=== PATIENT | male | born 1960 | race Caucasian/White ===

== ENCOUNTER 2017-02-01 09:41 | Emergency (ER) | payer BC ==
[~2017-02-01] VITALS: Ht 182.9 cm; Wt 172.4 kg
--- NOTE | ~2017-02-01 | EKG ---
[place] [address] [facility] [place] [address] ELECTROCARDIOGRAM REPORT Name: KVNG MALAVE Room [facility] [id number] Admission: 02/01/17 Attend Phys: Discharge: 02/01/17 Date of : 64 Report #: [id number] THIS REPORT FOR: //name// [facility] ED Test Date: 2017-02-01 Test Time: 10:08:59 Pat Name: KVNG MALAVE Department: Room: Gender: M Compliance Paralegal: : 1960 Requested By: Emma Ragland Order Number: [id number] MD: Papi Brambila Measurements Intervals [place] Rate: 101 P: [place]: QRS: 5 QRSD: 104 T: 7 QT: 342 QTc: 444 Interpretive Statements Atrial fibrillation Borderline low voltage, extremity leads No previous ECG available for comparison Electronically Signed On 02-02-2017 18:14:30 CDT by Papi Brambila [email or web address] <ELECTRONICALLY SIGNED> By: Papi Brambila MD, [facility] 02/02/17 1814 1008 1008 Papi Brambila MD, FACC /EPI
[~2017-02-01 09:41] MED LIST: COUMADIN 5 MG TA5 M1 PO; COUMADIN7.5 MG PO; ENALAPRIL MALEAT5 M1 PO; IBUPROFEN 600600 M1 PO; MEDROL DOSPAK21 TAB PO; NORCO 5-325 TA1 EACH PO; TOPROL XL50 MG PO; ULTRAM 50MG TAB50 MG PO; ZOCOR20 MG
[2017-02-01 10:06] LABS: HEMATOCRIT 45.8 % (42.0-52.0); HEMOGLOBIN 15.7 gm/dL (14.0-18.0); MCH 30.2 pg (26.0-34.0); MCHC 34.3 g/dL (28.0-37.0); RDW 14.7 % (10.5-14.5); WBC 9.6 thou/uL (4.0-11.0)
[2017-02-01 10:08] LABS: MANUAL DIFF YES
[2017-02-01 10:15] LABS: CREATININE 0.9 mg/dL (0.7-1.3); POTASSIUM 4.3 mmol/L (3.5-5.1)
[2017-02-01 10:25] LABS: ABG SAMPLE TYPE ARTERIAL; BE(vivo) 1.4 mmol/L (-2 to +3); LACTATE 1.08 mmol/L (0.5-2.0); O2(CT) 20.4 mL/dL (15.0-23.0); O2Hb 90.1 % (92.0-98.0); PO2 61.6 mmHg (80.0-100.0); STICK SITE R.RADIAL; sO2 92.1 % (92.0-98.0); tCO2 27.3 mmol/L (24.0-30.0)
[2017-02-01 10:31] LABS: APTT 62.7 Seconds (24.5-32.8); INR 5.8; PROTIME 57.5 Seconds (9.3-11.4)
[2017-02-01] MEDS ORDERED: LEVAQUIN 500 M500 MG PO (11:16)
[2017-02-01] MEDS ORDERED: NORCO 5-325 TA1 EACH PO (11:16)
[2017-02-01 11:17] LABS: ABSOLUTE NEUTROPHILS 6.3 thou/uL (1.4-8.2); ANISOCYTOSIS SLIGHT; ATYPICAL LYMPHS 1 %; LARGE PLATELETS RARE; PLATELET COUNT 162 thou/uL (150-400); TOTAL CELL COUNT 100
[2017-02-01] MEDS ORDERED: PREDNISONE 20 M20 MG PO (11:23)
[2017-02-01] MEDS ORDERED: PROAIR HFA8.5 GM INH (11:23)
[2017-02-01 11:35] VITALS: BP 119/74
== END 2017-02-01 11:16 | disposition home or self-care (01) ==
LOC: ER 09:41
PROVIDERS: Emergency Medicine
DX: J18.9 Pneumonia, unspecified organism (principal); R79.1 Abnormal coagulation profile; Z72.0 Tobacco use; I48.91 Unspecified atrial fibrillation; F10.99 Alcohol use, unspecified with unspecified alcohol-induced disorder; Z96.641 Presence of right artificial hip joint; Z88.0 Allergy status to penicillin

== ENCOUNTER → 2017-04-21 | Outpatient (CLI) | payer BC ==
[~2017-04-21] MED LIST changes: +ELIQUIS5 MG PO; +LEVAQUIN 500 M500 MG PO; +PREDNISONE 20 M20 MG PO; +PROAIR HFA8.5 GM INH
--- NOTE | ~2017-04-21 | EKG ---
[address] [address] ELECTROCARDIOGRAM REPORT Name: KVNG MALAVE Room #: REG CLI [facility]#: [id number] Admission: 04/21/17 Attend Phys: Abdiel Bender MD Discharge: Date of : 64 Report #: [id number] THIS REPORT FOR: //name// [facility] Test Date: 2017-04-25 Test Time: 06:10:17 Pat Name: KVNG MALAVE Department: Room: 213 P Gender: M Ems Educator: APARNA : 1960 Requested By: Lenard Oneil Order Number: [id number] MD: Papi Brambila Measurements Intervals [place] Rate: 81 P: [place]: QRS: -13 QRSD: 134 T: -18 QT: 376 QTc: 437 Interpretive Statements Atrial fibrillation Nonspecific T wave abnormality Compared to ECG 04/24/2017 07:36:27 No significant change was found Electronically Signed On 04-25-2017 8:51:47 CDT by Papi Brambila [email or web address] <ELECTRONICALLY SIGNED> By: Papi Brambila MD, [facility] 04/25/17 0851 9 9 Papi Brambila MD, [facility] /EPI
== END ==
LOC: CAT 09:25
DX: K62.89 Other specified diseases of anus and rectum (principal)

== ENCOUNTER 2017-04-22 13:42 | Inpatient (IN) | payer BC ==
[~2017-04-22] VITALS: Ht 185.4 cm; Wt 161.0 kg
--- NOTE | ~2017-04-22 | 2DMMODE ---
[facility] [address] [facility] [place] [address] 2 D/M-MODE ECHOCARDIOGRAM Name: KVNG MALAVE Room #: 213-P ADM IN M.R.#: [id number] Admission: 04/22/17 Attend Phys: Fabio Doe Discharge: Date of : 64 Date of Service: 04/25/17 1540 Report #: [id number] THIS REPORT FOR: //name// APPROVED REPORT Study performed: 04/25/2017 14:21:23 EXAM: Comprehensive 2D, Doppler, and color-flow Echocardiogram Patient Location: Bedside Room #: 213 Status: routine BSA: 2.74 BP: 118/66 mmHg Other Information Study Quality: Technically Difficult Technically limited study due to body habitus, inability to position patient. Indications Atrial Fibrillation 2D Dimensions RVDd: 57.80 mm LVEF(%): 52.39 (>50%) IVSd: 15.01 (7-11mm) LVOT Diam: 22.28 (18-24mm) LVDd: 57.65 mm PWd: 15.26 (7-11mm) Ascending Ao: 36.99 (22-36mm) LVDs: 41.92 (25-40mm) Aortic Root: 34.33 mm IVC: 17.00 mm Han's LVEF: 52.39 % Volumes Left Atrial Volume (Systole) Single Plane 4CH: 55.32 mL Single Plane 2CH: 54.42 mL LA ESV Index: 21.00 mL/m2 Aortic Valve AoV Peak Ravi.: 1.45 m/s AO Peak Gr.: 8.42 mmHg LVOT Max P.33 mmHg LVOT Max V: 1.04 m/s PAULA Vmax: 2.79 cm2 Mitral Valve MV Decel. Time: 190.93 ms [facility] [place] [address] 2 D/M-MODE ECHOCARDIOGRAM Name: KVNG MALAVE Room #: 213-P [facility] IN M.R.#: [id number] Admission: 04/22/17 Attend Phys: Fabio Doe Discharge: Date of : 64 Date of Service: 04/25/17 1540 Report #: [id number] E Max Ravi.: 0.95 m/s IVRT: 96.89 ms Pulmonary Valve PV Peak Ravi.: 1.05 m/s PV Peak Gr.: 4.37 mmHg Tricuspid Valve RAP Estimate: 5.00 mmHg Left Ventricle Left ventricle is borderline dilated. Moderate concentric left ventricular hypertrophy. Left ventricular systolic function is mildly decreased. LVEF is 45%. This study is not technically sufficient to allow evaluation of the LV diastolic function due to atrial fibrillation. Right Ventricle Right ventricle is severely dilated. The right ventricular systolic function is normal. Atria The left atrium size is normal. Right atrium is severely dilated. Aortic Valve The aortic valve is normal in structure. No aortic regurgitation is present. There is no aortic valvular stenosis. Mitral Valve The mitral valve is normal in structure. Trace mitral regurgitation. No evidence of mitral valve stenosis. Tricuspid Valve The tricuspid valve is normal in structure. There is no tricuspid valve regurgitation noted. Pulmonic Valve Pulmonic valve is not well visualized. Great Vessels The aortic root is normal in size. IVC is normal in size and collapses >50% with inspiration. Pericardium There is no pericardial effusion. [facility] [place] [address] 2 D/M-MODE ECHOCARDIOGRAM Name: KVNG MAALVE Room #: 213-P ADM IN M.R.#: [id number] Admission: 04/22/17 Attend Phys: Fabio Doe Discharge: Date of : 64 Date of Service: 04/25/171539 Report #: [id number] <Conclusion> Left ventricle is borderline dilated. Left ventricular systolic function is mildly decreased. LVEF is 45%. Right ventricle is severely dilated. The aortic valve is normal in structure. The mitral valve is normal in structure. Trace mitral regurgitation. The tricuspid valve is normal in structure. Pulmonic valve is not well visualized. There is no pericardial effusion. <ELECTRONICALLY SIGNED> By: Gray Brown MD 04/25/17 1540 1540 1540 Gray Brown MD /INF
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
--- NOTE | ~2017-04-22 | S ---
[facility] [address] [place] [address] SURGICAL PATH RPT PROCEDURE Name: KVNG MALAVE Room #: 213-P ADM IN M.R.#: [id number] Admission: 04/22/17 Date of : 64 Discharge: Report #: [id number] Path Case #: [id number] PATHOLOGY REPORT COLLECTION DATE: 04/24/2017 RECEIVED DATE: 04/25/2017 SUBMITTING PHYS: Dr. Abdiel Bender OTHER PHYS: Dr. Fabio Cm SPECIMEN(S) RECEIVED: A.Peritoneal biopsy B.Liver biopsy * * * * * * * * * * * * FINAL DIAGNOSIS: A. Fibroadipose tissue, peritoneum, biopsy: - INVOLVEMENT BY METASTATIC HIGH GRADE CARCINOMA WITH NEUROENDOCRINE FEATURES (PLEASE SEE COMMENT). B. Liver, needle core biopsy: - MODERATELY TO POORLY DIFFERENTIATED CARCINOMA (PLEASE SEE COMMENT). - Adjacent uninvolved liver parenchyma showing reactive nonspecific changes. (IUV:pit; 04/26/2017) COMMENT: Immunohistochemical stains are performed. CD45 on block A1 - Nonreactive within the neoplastic cells Cytokeratin on block A1 Rare reactive neoplastic cells Synaptophysin on block A1- Strong reactivity Chromogranin on block A1- Nonreactive CK7 on block B1 Reactive in 20% of the tumor cells CK20 on block B1 - Nonreactive CDX2 on block B1 Strongly reactive P40 on block B1 - Nonreactive P63 on block B1 - Nonreactive HSA on block B1 - Reactive within the cells expressing CK7 CK19 on block B1 - Reactive within the cells expressing CK7 Cytokeratin on block B1 - Reactive within the neoplastic cells TTF1- Nonreactive Synaptophysin on block B1- Scant reactive cells present Chromogranin on block B1- Nonreactive Based on the immunohistochemical stains the tumor in the liver likely represents a metastatic carcinoma of gastrointestinal origin including a hepato-biliary origin. The peritoneal biopsy tissue shows neuroendocrine features. The peritoneal biopsy tissue shows much crush artifact with focal viable tumor. These tumors may represent [facility] [address] [place] [address] SURGICAL PATH RPT PROCEDURE Name: KVNG MALAVE Room #: 213-P ADM IN M.R.#: [id number] Admission: 04/22/17 Date of : 64 Discharge: Report #: [id number] Path Case #: [id number] the same tumor with different reactivities towards the antigens (immunohistochemical stains) used. History of rectal lesion as well as lung nodules is provided. Please correlate clinically and follow up as indicated. Co-review: Dr. Alla Woods. Findings are discussed with Dr. Abdiel Bender at approximately 2:30 PM on 04/26/2017. (IUV:pit; 04/26/2017) PATHOLOGIST: Tori Shaw M.D. REPORT ELECTRONICALLY SIGNED BY: Tori Shaw M.D. DATE/TIME: 04/27/2017 15:30 * * * * * * * * * * * * GROSS PATHOLOGY: A. Received in formalin labeled "Kvng Malave peritoneal BX," is a single needle core of martinez soft tissue measuring 2.1 cm in length and 0.2 cm in diameter. The specimen is submitted entirely in cassette A1. B. Received in formalin labeled "Kvng Acostajoaquinaamanda, liver BX," are 3 distinct needle cores of martinez soft tissue ranging from 1.3 to 1.9 cm in length, which are submitted entirely in cassette B1. (TSD; 04/25/2017) CLINICAL HISTORY: Abdominal mass INITIAL CPT CODE(S): A; 46123, 34372, 97350, 35898, 74722 B; 96794, 03873, 33930, 70915, 29767, 40142, 29490, 84174, 84650, 96575, 61696, 49297 Professional services performed by [facility] at [place] [address], [place] [address] Technical services performed by [facility] at [address] [place] [address], [address], [place] [address]. [facility] [address] [place] [address] PHONE: [phone] DIRECTOR: Marek Chung M.D. * * * END OF REPORT * * *
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
--- NOTE | ~2017-04-22 | EKG ---
[address] [address] ELECTROCARDIOGRAM REPORT Name: KVNG MALAVE Room #: 213-P ADM IN M.R.#: [id number] Admission: 04/22/17 Attend Phys: Meena Ibrahim Discharge: Date of : 64 Report #: [id number] THIS REPORT FOR: //name// [facility] Test Date: 2017-04-27 Test Time: 06:26:00 Pat Name: KVNG MALAVE Department: Room: 213 P Gender: M Damper Maker: : 1960 Requested By: Abdiel Bender Order Number: [id number] MD: Papi Brambila Measurements Intervals [place] Rate: 86 P: [place]: QRS: 20 QRSD: 101 T: 28 QT: 373 QTc: 446 Interpretive Statements Atrial fibrillation Low voltage, extremity leads Compared to ECG 04/25/2017 06:10:17 No significant change was found Electronically Signed On 04-27-2017 7:48:42 CDT by Papi Brambila [email or web address] <ELECTRONICALLY SIGNED> By: Papi Brambila MD, [facility] 04/27/17 0748 5 5 Papi Brambila MD, [facility] /EPI
--- NOTE | ~2017-04-22 | EKG ---
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
--- NOTE | ~2017-04-22 | P ---
[facility] [place] [address] [place] [address] PROCEDURE REPORT Name: TOBINKVNG YOUNGN Room #: 213-P ADM IN M.R.#: [id number] Admission: 04/22/17 Attend Phys: Meena Ibrahim Discharge: Date of : 64 Report #: [id number] THIS REPORT FOR: //name// CC: MICHELLE Bender MD DATE OF SERVICE: 04/29/2017 PROCEDURE PERFORMED: Flexible sigmoidoscopy with biopsies. HISTORY OF PRESENT ILLNESS: The patient is a 57-year-old male who I proceeded with a colonoscopy on several weeks ago for mucus in his stools. He was noted to have a large malignant appearing mass in his distal rectum. Biopsies at that time showed tubulous adenoma with high grade dysplasia, suspect focally suspicious for invasion. He then underwent a diverting colostomy by Dr. Abdiel Bender after a CT scan of his abdomen and pelvis showed widely metastatic disease. Biopsies during surgery by Dr. Bender of the peritoneal area as well as liver biopsy were obtained, which showed involvement by metastatic high grade carcinoma with narrow endocrine features. The liver biopsies showed moderately to poorly differentiated carcinoma. Plan is for repeat biopsies of rectal mass today. DESCRIPTION OF PROCEDURE: The risks and benefits of the procedure were explained to the patient, those risks including but not limited to bleeding, perforation, the risk of sedation. He understood these risks and gave informed consent. Sedation was given using propofol per anesthesia. Next, a digital rectal exam, once again a large mass was palpated. Next, using a standard Fujinon colonoscope, the scope was placed in the patient's anus and advanced under direct vision into the rectum. Retroflexion was performed, again a large mass was again noted. Multiple biopsies were obtained. At this point, the scope was then withdrawn and my part of the procedure was finished. Dr. Bender went ahead and did further biopsies through an anoscope. The patient tolerated the procedure well. IMPRESSION: Large distal rectal mass, status post biopsies. RECOMMENDATIONS: We will await biopsy results. Thank you for allowing me to participate in his care. By: [id number] Jose Vizcarra MD /nt
--- NOTE | ~2017-04-22 | D ---
[facility] [place] [address] [place] [address] DISCHARGE SUMMARY Name: KVNG MALAVE Room #: 213-P ADM IN M.R.#: [id number] Admission: 04/22/17 Attend Phys: Meena Ibrahim Discharge: Date of : 64 Report #: [id number] THIS REPORT FOR: //name// CC: Fabio Cm FINAL DIAGNOSES: 1. 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 2. Atrial fibrillation. 3. Obstructive sleep apnea, on CPAP. 4. Morbid obesity. 5. Cardiomyopathy with EF 45%. 6. Malignant hypercalcemia. PROCEDURES: 1. Diverting colostomy. 2. Flexible sigmoidoscope with mass biopsy. HOSPITAL COURSE: The patient was admitted for evaluation and treatment of a distal colonic mass, suspected to be colon cancer. The plan was for surgical intervention for a diverting colostomy to avoid bowel obstruction, which was performed by Dr. Bender. Please see that report. He had some postoperative tachyarrhythmia with his baseline AFib and was managed by the cardiology service. Eventually they settled on Eliquis for anticoagulation for his atrial fibrillation. Dr. Handley followed him along as well. Pathology revealed a poorly differentiated carcinoma from the liver and omentum biopsies, and it was unclear whether this was possibly a neuro-endocrine occurring tumor because it was not definitively consistent with adenocarcinoma of the rectum. Therefore, a followup sigmoidoscopy was performed by Dr. Vizcarra for additional biopsies of what was thought to be the primary mass in the rectum. On the day of discharge, he was awake and alert with stable vital signs. He had been eating a regular diet with adequate ostomy output and walking the halls. His lungs were clear. Heart was regular. Abdomen, soft, obese, normoactive bowel sounds, with a functioning colostomy. Extremities showed no edema. DISPOSITION: He will be discharged to home with home health for PT and nursing, further education of colostomy care. Diet and activity as tolerated. Follow up with Dr. Cm and Dr. Dr. Handley in 1 week. Medications will be DuoNeb inhaler, fentanyl patch 25 mcg every 72 hours, hydrocodone 5 mg q. 4 hours p.r.n., metoprolol XL 50 mg, and Eliquis 5 mg twice a day. By: [id number] Kvng Rivas MD /nt
--- NOTE | ~2017-04-22 | O ---
[facility] [place] [address] [place] [address] OPERATIVE REPORT Name: KVNG MALAVE Room #: 420-P ADM IN M.R.#: [id number] Admission: 04/22/17 Attend Phys: Meena Ibrahim Discharge: Date of : 64 Report #: [id number] THIS REPORT FOR: //name// CC: Frantz Handley MD DATE OF SERVICE: 04/24/2017 DATE OF SERVICE: 04/24/2017 PREOPERATIVE DIAGNOSIS: Rectal mass with obstructive symptom, widespread metastatic disease involving liver, peritoneum, vertebrae, ribs, lung. PROCEDURES PERFORMED: Diagnostic laparoscopy with biopsy of omental implant and core liver biopsy of liver metastasis and diverting proximal transverse loop colostomy. ANESTHESIA: General. SURGEON: Abdiel Bender M.D. ESTIMATED BLOOD LOSS: 130 mL. COMPLICATIONS: None. DESCRIPTION OF PROCEDURE: With the patient under general anesthesia. He has multiple incisional hernia at the midline with the liver involvement, and looking at his CT scan the transverse colon looks like it is fairly close to the wall in the area just below the liver. I decided to stay in the right abdomen for the laparoscopy. A 2.5 x 3 cm ellipse of skin was excised. Subcutaneous fat was removed, the anterior fascia was identified and opened. Vicryl suture placed on the fascia. Muscle was divided and posterior sheath and peritoneum was identified. This was grasped with hemostat. This was opened under visualization. Peritoneal cavity was entered and its free in this area. An 11 mm balloon trocar was placed. Abdominal cavity was insufflated with CO2. Under laparoscopic evaluation, the patient was found to have a large metastatic spread to the liver. In the upper part of the peritoneum, there was also exudative covering and nodular appearance. There is a small nodule in the falciform also. The patient midline is adhesed and the incisional hernias identified. Lower down the peritoneal surface appears to be free. A 5 mm trocar was placed in the lower quadrant close to the midline and a second 5 mm trocar was placed in the right side lower abdomen laterally. The peritoneal implant was biopsied on the falciform ligament. This was only about a 3 mm lesion. This was sent in formalin. An 18 gauge Monopty core biopsy was performed of the liver met and 3 separate cores were obtained, which looks like has good tissue. The omentum [address] [address] OPERATIVE REPORT Name: KVNG MALAVE Room #: 420-P [facility] IN M.R.#: [id number] Admission: 04/22/17 Attend Phys: Meena Ibrahim Discharge: Date of : 64 Report #: [id number] over the proximal transverse colon was then dissected free using Harmonic scalpel. The colon was seen to be isolated. The laparoscopic procedure was then terminated. Through the larger incision site, the abdominal wall was opened up. The muscle was cauterized. The fascia was opened and the opening was enlarged. The transverse colon was brought up into the incision. The fat attachment was further free. This was free superiorly also inferiorly. The colon is fairly wide in this area. I was able to eventually work underneath it. A colostomy bridge was then placed underneath and supported. The bridge was sewn to the skin with a 2-0 nylon suture. The colostomy was opened. The laparoscopic trocar site was closed with 5-0 PDS and Dermabond, Band-Aid. The colostomy was mature. There was a small oozing from the ostomy site. Ostomy bag was placed. The patient was then awakened, extubated. He will be taken to recovery room. By: 1322 1349 Abdiel Bender MD /nt
--- NOTE | ~2017-04-22 | HC ---
[facility] [place] [address] [place] [address] CONSULTATION Name: KVNG MALAVE Room #: 213-P ADM IN M.R.#: [id number] Admission: 04/22/17 Attend Phys: Meena Ibrahim Discharge: Date of : 64 Report #: [id number] THIS REPORT FOR: //name// CC: Fabio Cm REASON FOR CONSULTATION: AFib. HISTORY OF PRESENT ILLNESS: The patient is a 57-year-old morbidly obese male with a history of hypertension, obstructive sleep apnea and permanent atrial fibrillation for approximately 20 years. He has been on Eliquis. Recently diagnosed with a rectal mass concerning for cancer with some evidence of mets on the liver, underwent a diverting colostomy today and then was having some AFib with rapid ventricular response, was placed diltiazem drip and now he is doing better. He denies chest pain, shortness of breath, PND, orthopnea, presyncope or syncope. REVIEW OF SYSTEMS: A 12-point review of systems was performed. GENERAL: No fevers or chills. HEENT: No blurred vision. CARDIOVASCULAR: As above. PULMONARY: No productive cough. GASTROINTESTINAL: He has been having abdominal pain and he has the rectal fullness and mass. GENITOURINARY: No dysuria. MUSCULOSKELETAL: No myalgias, arthralgias. ENDOCRINE: No heat or cold intolerance. NEUROLOGIC: No focal weakness. PAST MEDICAL HISTORY: AFib, obstructive sleep apnea and hypertension. SOCIAL HISTORY: Quit smoking. FAMILY HISTORY: Noncontributory. ALLERGIES: PENICILLIN. MEDICATIONS: Reviewed. PHYSICAL EXAMINATION: VITAL SIGNS: Temperature is 37.1, pulse 99, respiration 16, blood pressure 135/86, sats are 93% to 97%. GENERAL: He is alert and oriented x 3, no acute distress. HEENT: Oropharynx is clear. NECK: Supple, with no thyromegaly. HEART: Irregularly irregular, is not tachycardic. LUNGS: Clear to auscultation bilaterally. ABDOMEN: Soft, nontender, nondistended with no hepatosplenomegaly. [facility] [address] [place] [address] CONSULTATION Name: KVNG MALAVE Room #: 213-P [facility] IN .R.#: [id number] Admission: 04/22/17 Attend Phys: Meena Ibrahim Discharge: Date of : 64 Report #: [id number] EXTREMITIES: There is no clubbing, cyanosis, edema. NEUROLOGICAL: Cranial nerves 2-12 are intact. His 12-lead EKG shows atrial fibrillation. Telemetry shows AFib with controlled ventricular response. LABORATORY DATA: White count 10, hemoglobin 14, platelets 164. Coags: INR is 1.3. Chemistry: Potassium 4.8, creatinine 0.8. IMAGING: His chest CT shows wide spread metastatic disease including the lungs, bone mets and also intraabdominal mets as well. ASSESSMENT AND PLAN: In summary, the patient is a 57-year-old with a history of permanent atrial fibrillation. He had an episode of atrial fibrillation with rapid ventricular response. This now appears to be under control with diltiazem. We can continue this until he is taking p.o. and then he can resume his regular p.o. medications. In terms of his anticoagulation, this can be resumed per the surgeon's recommendations. Given his atrial fibrillation and metastatic disease, I recommend an echocardiogram to ensure normal LV function. Given that he is going to have upcoming chemo radiation then we should rule out any mets to the pericardium. By: 1619 [id number] Lenard Oneil MD /nt
--- NOTE | ~2017-04-22 | S ---
[facility] [address] [place] [address] SURGICAL PATH RPT PROCEDURE Name: KVNG MALAVE Room #: 213-P ADM IN M.R.#: [id number] Admission: 04/22/17 Date of : 64 Discharge: Report #: [id number] Path Case #: [id number] PATHOLOGY REPORT DRAFT COLLECTION DATE: 04/29/2017 RECEIVED DATE: 04/29/2017 SPECIMEN(S) RECEIVED: Hebert of rectal mass x4
[~2017-04-22 13:42] MED LIST changes: -ELIQUIS5 MG PO
[2017-04-22 13:53] VITALS: BP 120/76
[2017-04-22] MEDS ORDERED: ELIQUIS5 MG PO (14:27)
[2017-04-22 17:56] LABS: ABSOLUTE NEUTROPHILS 8.5 thou/uL (1.4-8.2); BASOPHILS 0.5 % (0.0-2.0); HEMATOCRIT 43.4 % (42.0-52.0); HEMOGLOBIN 14.4 gm/dL (14.0-18.0); LYMPHOCYTES 9.3 % (24.0-44.0); MCHC 33.2 g/dL (28.0-37.0); MCV 84.5 fL (80.0-100.0); MONOCYTES 11.6 % (1.0-8.0); PLATELET COUNT 164 thou/uL (150-400); POLYS 77.6 % (36.0-66.0); RBC 5.14 mil/uL (4.50-6.00); RDW 17.2 % (10.5-14.5); WBC 10.9 thou/uL (4.0-11.0)
[2017-04-22 18:08] LABS: MANUAL DIFF NO
[2017-04-22 18:15] LABS: APTT 33.9 Seconds (24.5-32.8); INR 1.3; PROTIME 13.4 Seconds (9.3-11.4)
[2017-04-22 18:20] LABS: ALBUMIN 2.8 g/dL (3.4-5.0); CALCIUM 11.1 mg/dL (8.5-10.1); CREATININE 0.8 mg/dL (0.7-1.3); POTASSIUM 4.8 mmol/L (3.5-5.1); TOTAL BILIRUBIN 1.7 mg/dL (<0.1-1.0); TOTAL PROTEIN 7.1 g/dL (6.4-8.2)
[2017-04-22 19:31] VITALS: BP 103/74
[2017-04-23 04:00] VITALS: BP 117/78
[2017-04-23 07:40] VITALS: BP 133/89
[2017-04-23 17:27] VITALS: BP 107/78
[2017-04-23 19:50] VITALS: BP 126/86
[2017-04-24 03:17] VITALS: BP 108/73
[2017-04-24 08:06] VITALS: BP 135/86
[2017-04-24 15:15] VITALS: BP 116/74
[2017-04-24 19:02] VITALS: BP 104/69
[2017-04-24 23:28] VITALS: BP 114/62
[2017-04-25 04:06] VITALS: BP 103/71
[2017-04-25 07:31] VITALS: BP 122/60
[2017-04-25 11:10] VITALS: BP 118/66
[2017-04-25 15:33] VITALS: BP 108/59
[2017-04-25 19:44] VITALS: BP 139/86
[2017-04-25 23:42] VITALS: BP 122/80
[2017-04-26 03:32] VITALS: BP 121/74
[2017-04-26 08:37] LABS: CALCIUM 11.5 mg/dL (8.5-10.1); CREATININE 1.2 mg/dL (0.7-1.3); POTASSIUM 5.3 mmol/L (3.5-5.1)
[2017-04-26 09:00] VITALS: BP 125/77
[2017-04-26 11:42] VITALS: BP 125/77
[2017-04-26 14:07] VITALS: BP 125/95
[2017-04-26 16:39] VITALS: BP 118/84
[2017-04-26 19:27] VITALS: BP 111/71
[2017-04-27 04:07] LABS: CALCIUM 10.7 mg/dL (8.5-10.1); CREATININE 1.1 mg/dL (0.7-1.3); POTASSIUM 5.1 mmol/L (3.5-5.1)
[2017-04-27 04:54] VITALS: BP 110/65
[2017-04-27 07:36] VITALS: BP 112/61
[2017-04-27 11:33] VITALS: BP 108/70
[2017-04-27 15:32] VITALS: BP 107/71
[2017-04-27 20:13] VITALS: BP 117/73
[2017-04-28 04:05] LABS: CALCIUM 9.8 mg/dL (8.5-10.1); CREATININE 0.9 mg/dL (0.7-1.3); POTASSIUM 5.4 mmol/L (3.5-5.1)
[2017-04-28 04:20] VITALS: BP 91/51
[2017-04-28 07:55] VITALS: BP 113/76
[2017-04-28 11:45] VITALS: BP 120/63
[2017-04-28 16:30] VITALS: BP 112/85
[2017-04-28 19:45] VITALS: BP 114/76
[2017-04-29 04:05] VITALS: BP 111/74
[2017-04-29 04:55] LABS: ALBUMIN 2.2 g/dL (3.4-5.0); CALCIUM 8.9 mg/dL (8.5-10.1); CREATININE 0.9 mg/dL (0.7-1.3); POTASSIUM 4.5 mmol/L (3.5-5.1); TOTAL BILIRUBIN 7.1 mg/dL (<0.1-1.0)
[2017-04-29 05:10] LABS: TOTAL PROTEIN 5.9 g/dL (6.4-8.2)
[2017-04-29 07:15] VITALS: BP 160/112
[2017-04-29 07:20] VITALS: BP 112/67
[2017-04-29] MEDS ORDERED: DURAGESIC25 MCG/HR TRANSDERM (10:03)
[2017-04-29] MEDS ORDERED: NORCO 5-325 TA1 EACH PO (10:04)
[2017-04-29] MEDS ORDERED: ELIQUIS5 MG PO (10:05)
[2017-04-29 11:20] VITALS: BP 108/75
[2017-04-29 16:10] VITALS: BP 104/61
[2017-04-29 19:53] VITALS: BP 117/79
[2017-04-30 04:15] VITALS: BP 110/67
[2017-04-30 04:21] LABS: CALCIUM 8.6 mg/dL (8.5-10.1); CREATININE 0.9 mg/dL (0.7-1.3); POTASSIUM 4.7 mmol/L (3.5-5.1)
[2017-04-30 07:20] VITALS: BP 105/75
[2017-04-30 11:20] VITALS: BP 151/108
[2017-04-30 13:14] VITALS: BP 151/108
[2017-04-30 13:35] VITALS: BP 151/108
[2017-04-30 13:49] LABS: COLLECTION DURATION 24 hours; TOTAL VOLUME 1370 mL
[2017-04-30 13:55] VITALS: BP 151/108
== END 2017-04-30 15:30 | disposition home health service (06) | DRG 329 ==
LOC: 4E 13:42 → 2N 04-24 15:01
PROVIDERS: Internal Medicine; Internal Medicine Gastroenterology; Internal Medicine Geriatric Medicine; Internal Medicine Hematology & Oncology; Surgery
PROC: 0D1L0Z4 Bypass Transverse Colon to Cutaneous, Open Approach (ICD-10-PCS; principal; 2017-04-24)
PROC: 0DBU4ZX Excision of Omentum, Percutaneous Endoscopic Approach, Diagnostic (ICD-10-PCS; principal; 2017-04-24)
PROC: 0DJU4ZZ Inspection of Omentum, Percutaneous Endoscopic Approach (ICD-10-PCS; principal; 2017-04-24)
PROC: 0FB04ZX Excision of Liver, Percutaneous Endoscopic Approach, Diagnostic (ICD-10-PCS; principal; 2017-04-24)
PROC: 02HV33Z Insertion of Infusion Device into Superior Vena Cava, Percutaneous Approach (ICD-10-PCS; 2017-04-26)
PROC: 0DBP8ZX Excision of Rectum, Via Natural or Artificial Opening Endoscopic, Diagnostic (ICD-10-PCS; 2017-04-29)
DX: C19 Malignant neoplasm of rectosigmoid junction (principal); E43 Unspecified severe protein-calorie malnutrition; C79.51 Secondary malignant neoplasm of bone; C79.89 Secondary malignant neoplasm of other specified sites; Z68.42 Body mass index [BMI] 45.0-49.9, adult; I42.9 Cardiomyopathy, unspecified; C78.7 Secondary malignant neoplasm of liver and intrahepatic bile duct; C78.6 Secondary malignant neoplasm of retroperitoneum and peritoneum; E66.01 Morbid (severe) obesity due to excess calories; I48.2 Chronic atrial fibrillation; Z96.641 Presence of right artificial hip joint; I10 Essential (primary) hypertension; G47.33 Obstructive sleep apnea (adult) (pediatric); E83.52 Hypercalcemia; M19.90 Unspecified osteoarthritis, unspecified site; Z79.01 Long term (current) use of anticoagulants; Z87.891 Personal history of nicotine dependence; Z88.0 Allergy status to penicillin; Z28.21 Immunization not carried out because of patient refusal
CPT/HCPCS: 10081; 10783; 10797; 50010; 50101; 50249; 50386; 50403; 50555; 51046; 51404; 51938; 53065; 53307; 53310; 53335; 54118; 56462; 56524; 56525; 56526; 56639; 57092; 62110; 62850; 62900; 70005